=== PATIENT | male | born 1975 | race Caucasian/White ===

== ENCOUNTER 2020-05-05 10:50 | Outpatient (CLI) | payer BC, SELFPAY ==
[2020-05-05 11:29] LABS: Basophils Percent Auto 0.7 % (0.2-1.2); Eosinophils Absolute Auto 0.1 K/mm3 (0-0.3); Eosinophils Percent Auto 1.9 % (0-4.4); Hematocrit 46.7 % (42.0-52.0); Hemoglobin 15.7 g/dL (14.0-18.0); Immature Granulocyte Absolute 0.01 K/mm3 (0.00-0.031); Immature Granulocyte Percent A 0.2 % (0-0.5); Lymphocytes Absolute Auto 1.23 K/mm3 (0.9-3.2); Lymphocytes Percent Auto 21.4 % (18.3-44.2); Mean Corpuscular HGB Conc 33.6 g/dl (32-36); Mean Corpuscular Volume 92.3 fl (80-100); Mean Platelet Volume 9.9 fl (7.4-10.4); Monocytes Absolute Auto 0.7 K/mm3 (0.1-0.6); Monocytes Percent Auto 12.2 % (2.6-8.5); Neutrophils Absolute Auto 3.7 K/mm3 (1.3-6.7); Neutrophils Percent Auto 63.6 % (45.5-73.1); Platelet Count Result 198 k/mm3 (150-375); Red Blood Count 5.06 M/mm3 (4.6-6.20); Red Cell Distribution Width 12.4 % (11.5-14.5); White Blood Count 5.8 K/mm3 (4.5-10.0)
[2020-05-05 12:40] LABS: Alanine Aminotransferase 56 U/L (4-50); Albumin Level 4.5 g/dL (3.5-5.1); Alkaline Phosphatase 50 U/L (38-126); Aspartate Amino Transferase 29 U/L (17-59); Bilirubin,Total 0.3 mg/dL (0.2-1.3); Blood Urea Nitrogen 18 mg/dL (9-20); Calcium 9.1 mg/dL (8.4-10.2); Carbon Dioxide 28 mmol/L (22-30); Chloride 103 mmol/L (98-107); Estimated Glomerular Filt Rate > 60; Glucose 103 mg/dL (75-110); Potassium 3.9 mmol/L (3.4-5.0); Sodium 139 mmol/L (137-145)
[2020-05-05 13:10] LABS: Prostate Specific Antigen 0.5 ng/mL (< OR = 4.0)
[2020-05-10 12:27] LABS: HCG Tumor Marker <3 mIU/mL (<5)
[2020-05-12 17:31] LABS: Alpha Fetoprotein Tumor Marker 2.2 ng/mL (<6.1)
== END 2020-05-05 10:51 | disposition home or self-care (01) ==
PROVIDERS: PCP Internal Medicine; Visit Provider Internal Medicine Hematology & Oncology
DX: C62.92 Malignant neoplasm of left testis, unspecified whether descended or undescended (principal); Z12.5 Encounter for screening for malignant neoplasm of prostate
CPT/HCPCS: 36415; 80053; 82105; 84153; 84702; 85025; G0103

== ENCOUNTER 2020-07-21 07:25 | Outpatient (CLI) | payer BC, SELFPAY ==
--- NOTE | ~2020-07-21 | CT_ITS ---
EXAMINATION: CT abdomen pelvis wo/w con EXAM DATE: 07/21/2020 08:16 INDICATION: Gross hematuria. Testicular cancer. TECHNIQUE: Spiral CT of the abdomen and pelvis was performed without contrast. The patient was then injected with small bolus intravenous Omnipaque 350, followed by delay of approximately 10 minutes to allow collecting system to opacify. A post contrast scan abdomen and pelvis was performed during inj ection of remaining contrast. A total of 130 cc intravenous contrast was administered. The dose-walker th product (DLP) for this examination was 1950.66 mGy-cm. The exposure was tailored according to pat ient size (auto mA exposure control), and iterative reconstruction (ASIR) was used as additional dose reduction technique. Comparison is made to prior examination from 11/05/2019. FINDINGS: There is punctate left superior calyceal stone. There is a 2.0 cm left renal cyst with milk of calcium. Several smaller renal cysts bilaterally. The kidneys enhance symmetrically. There are no suspicious renal lesions. The calyces and opacified portions of ureters are unremarkable, without filling defects or focal suspicious strictures. The bladder is unremarkable. The prostate is unrem arkable. The liver, spleen, adrenal glands and pancreas are unremarkable. Gallbladder is unremarkable. No bi liary obstruction. There is no retroperitoneal or pelvic lymphadenopathy. The appendix is normal. The stomach and small bowel are unremarkable. There is expected amount of c olonic stool. No free intraperitoneal gas. The heart is normal in size. There are no pericardial or pleural effusions. The lung bases are unremarkable. Left ischial sclerotic focus unchanged, con sistent with bone island. IMPRESSION: 1. Punctate left nephrolithiasis. 2. No evidence of metastatic disease. Reviewed, dictated and finalized at location B.
--- NOTE | ~2020-07-21 | XR_ITS ---
EXAMINATION: XR abdomen/kub 1V EXAM DATE: 07/21/2020 07:58 INDICATION: Gross hematuria. TECHNIQUE: Frontal projection of the upper abdomen, frontal projection lower abdomen/pelvis for inter pretation. There is no prior study for comparison. FINDINGS: There is expected amount of colonic stool and gas. No small bowel dilation, nonobstructiv e bowel gas pattern. There are no suspicious calcifications identified. There is no organomegaly suspected. Approximately 1 cm left ischial sclerotic focus likely bone island. IMPRESSION: Can't identify punctate left nephrolithiasis. Sclerotic left ischial focus probably bone island. Reviewed, dictated and finalized at location B. IMPRESSION: Can't identify punctate left nephrolithiasis. Sclerotic left ischi al focus probably bone island.
== END 2020-07-21 07:26 | disposition home or self-care (01) ==
LOC: ANHIMG 07:28
PROVIDERS: PCP Internal Medicine; Visit Provider Nurse Practitioner Adult Health
DX: R31.0 Gross hematuria (principal); N20.0 Calculus of kidney
CPT/HCPCS: 74018; 74178; Q9967

== ENCOUNTER 2021-01-26 08:48 | Outpatient (CLI) | payer BC, SELFPAY ==
[2021-01-26 09:07] LABS: Basophils Percent Auto 0.6 % (0.2-1.2); Eosinophils Absolute Auto 0.3 K/mm3 (0-0.3); Eosinophils Percent Auto 4.5 % (0-4.4); Hematocrit 46.8 % (42.0-52.0); Hemoglobin 15.8 g/dL (14.0-18.0); Immature Granulocyte Absolute 0.01 K/mm3 (0.00-0.031); Immature Granulocyte Percent A 0.2 % (0-0.5); Lymphocytes Absolute Auto 1.83 K/mm3 (0.9-3.2); Lymphocytes Percent Auto 29.6 % (18.3-44.2); Mean Corpuscular HGB Conc 33.8 g/dl (32-36); Mean Corpuscular Hemoglobin 30.6 pg (26-34); Mean Corpuscular Volume 90.5 fl (80-100); Mean Platelet Volume 10.1 fl (7.4-10.4); Monocytes Absolute Auto 0.5 K/mm3 (0.1-0.6); Monocytes Percent Auto 7.6 % (2.6-8.5); Neutrophils Absolute Auto 3.6 K/mm3 (1.3-6.7); Neutrophils Percent Auto 57.5 % (45.5-73.1); Platelet Count Result 248 k/mm3 (150-375); Red Blood Count 5.17 M/mm3 (4.6-6.20); Red Cell Distribution Width 12.7 % (11.5-14.5); White Blood Count 6.2 K/mm3 (4.5-10.0)
[2021-01-26 10:07] LABS: Alanine Aminotransferase 44 U/L (4-50); Albumin Level 4.9 g/dL (3.5-5.1); Alkaline Phosphatase 44 U/L (38-126); Anion Gap 9 mmol/L (8-16); Aspartate Amino Transferase 26 U/L (17-59); Bilirubin,Total 0.5 mg/dL (0.2-1.3); Blood Urea Nitrogen 19 mg/dL (9-20); Carbon Dioxide 29 mmol/L (22-30); Chloride 102 mmol/L (98-107); Estimated Glomerular Filt Rate > 60; Glucose 116 mg/dL (75-110); Sodium 140 mmol/L (137-145)
[2021-01-30 14:12] LABS: Alpha Fetoprotein Tumor Marker 2.4 ng/mL (<6.1)
[2021-01-31 18:50] LABS: HCG Tumor Marker <3 mIU/mL (<5)
== END 2021-01-26 08:49 | disposition home or self-care (01) ==
LOC: ANHLAB 08:49
PROVIDERS: PCP Internal Medicine; Visit Provider Internal Medicine Hematology & Oncology
DX: C62.92 Malignant neoplasm of left testis, unspecified whether descended or undescended (principal)
CPT/HCPCS: 36415; 80053; 82105; 84702; 85025

== ENCOUNTER 2022-02-15 08:59 | Outpatient (CLI) | payer BC, SELFPAY ==
[2022-02-15 09:24] LABS: Basophils Absolute Auto 0.1 K/mm3 (0.0-0.1); Basophils Percent Auto 1.4 % (0.2-1.2); Eosinophils Absolute Auto 0.3 K/mm3 (0-0.3); Eosinophils Percent Auto 5.2 % (0-4.4); Hematocrit 47.3 % (42.0-52.0); Hemoglobin 15.4 g/dL (14.0-18.0); Immature Granulocyte Absolute 0.02 K/mm3 (0.00-0.031); Immature Granulocyte Percent A 0.4 % (0-0.5); Lymphocytes Absolute Auto 1.64 K/mm3 (0.9-3.2); Lymphocytes Percent Auto 31.7 % (18.3-44.2); Mean Corpuscular HGB Conc 32.6 g/dl (32-36); Mean Corpuscular Hemoglobin 31.6 pg (26-34); Mean Corpuscular Volume 96.9 fl (80-100); Monocytes Absolute Auto 0.5 K/mm3 (0.1-0.6); Monocytes Percent Auto 8.9 % (2.6-8.5); Neutrophils Absolute Auto 2.7 K/mm3 (1.3-6.7); Neutrophils Percent Auto 52.4 % (45.5-73.1); Platelet Count Result 231 k/mm3 (150-375); Red Blood Count 4.88 M/mm3 (4.6-6.20); Red Cell Distribution Width 12.6 % (11.5-14.5); White Blood Count 5.2 K/mm3 (4.5-10.0)
[2022-02-15 10:51] LABS: Alanine Aminotransferase 61 U/L (4-50); Albumin Level 4.9 g/dL (3.5-5.1); Alkaline Phosphatase 45 U/L (38-126); Anion Gap 10 mmol/L (8-16); Aspartate Amino Transferase 34 U/L (17-59); Bilirubin,Total 0.4 mg/dL (0.2-1.3); Blood Urea Nitrogen 18 mg/dL (9-20); Carbon Dioxide 27 mmol/L (22-30); Chloride 103 mmol/L (98-107); Estimated Glomerular Filt Rate > 60; Glucose 100 mg/dL (65-110); Potassium 3.8 mmol/L (3.4-5.0); Sodium 140 mmol/L (137-145)
[2022-02-15 11:21] LABS: Prostate Specific Antigen 0.6 ng/mL (< OR = 4.0)
[2022-02-18 08:19] LABS: HCG Tumor Marker <3 mIU/mL (<5)
[2022-02-20 22:47] LABS: Alpha Fetoprotein Tumor Marker 2.9 ng/mL (<6.1)
== END 2022-02-15 09:00 | disposition home or self-care (01) ==
LOC: ANHLAB 09:01
PROVIDERS: PCP Internal Medicine; Visit Provider Internal Medicine Hematology & Oncology
DX: C62.92 Malignant neoplasm of left testis, unspecified whether descended or undescended (principal); Z12.5 Encounter for screening for malignant neoplasm of prostate
CPT/HCPCS: 36415; 80053; 82105; 84153; 84702; 85025; G0103

== ENCOUNTER 2022-05-25 01:33 | Day surgery (SDC) | payer BC, SELFPAY ==
[2022-05-10 11:44] VITALS: BMI 29.3
--- NOTE | 2022-05-24 11:45 | SUR.PREOP ---
1145 spoke with patient, patient is taking Sutab for his prep.
[2022-05-25 07:39] VITALS: BP 148/88; PULSE 86; RESP 17; TEMP 36.4; O2SAT 98
--- NOTE | 2022-05-25 07:40 | P.PNAN_ITS ---
Anes - Initial Pre Proc Eval Procedure: Operation Date: 05/25/22 08:30 Proposed Procedures p Screening Colonoscopy - Samuel Casas MD Date/Time: 05/25/22 07:40 Surgeon: Samuel Casas MD Pre Op Diagnosis: neoplasm screening Patient Data Age: 46 Gender: M Height: 1.8 m Weight: 95.5 kg Allergies Allergy/AdvReac Type Severity Reaction Status Date / Time No Known Allergies Allergy Unknown NONE Verified 05/25/22 07:37 Home Medications Medication Instructions Recorded Confirmed Type fexofenadine 180 mg tablet 180 mg PO DAILY 05/10/22 05/10/22 History fluticasone propionate 50 1 spray intranasal DAILY 05/10/22 05/10/22 History mcg/actuation nasal spray,suspension montelukast 10 mg tablet 10 mg PO DAILY 05/10/22 05/10/22 History multivitamin with minerals-folic 1 tablet PO DAILY 05/10/22 05/10/22 History acid 0.4 mg tablet Patient hx anesthesia problems: none Family hx anesthesia problems: none Results Review: All pre-operative results and documents have been reviewed as part of the pre- operative evaluation. [facility] Past Medical History Medical History (Updated 05/25/22 @ 07:40 by Darryn Hilario MD) Overweight (BMI 25.0-29.9) Family History Family History (Updated 10/30/18 @ 17:25 by DOCTOR UNKNOWN) Father Family history of hypercholesterolemia Hypertension Malignant neoplasm of prostate Social History Social History Smoking status: Former smoker Tobacco type: cigarettes Second hand tobacco smoke exposure: No Smoking end date: 10/28/13 Alcohol intake: current Drinks per week: 2 Substance use type: does not use Living arrangements: with family Spiritual care concerns: No Anes - Eval Final PreProcedure Day of Procedure 05/25/22 07:40 Patient weight: overweight Heart: regular rate and rhythm Lungs: clear to auscultation and normal air movement Airway: Mallampati scale class II Neurological: alert and oriented Last oral intake: >/= 8 hours ASA classification: II Emergent: no Anesthetic plan: proceed Anesthesia type and monitoring: general GIVS Results Review: All pre-operative results and documents have been reviewed as part of the pre- operative evaluation. Informed Consent: The patient's anesthetic plan and its attendant risks and benefits were discu ssed with the patient/family/POA. Questions were solicited and answers provided to the satisfaction of the patient/family/POA.
[2022-05-25] MEDS: LACTATED RINGERS 1,000 ML 150 ML IV CONT (07:46)
--- NOTE | 2022-05-25 08:31 | P.HP_ITS ---
H&P: HPI History of Present Illness Date/Time: 05/25/22 08:31 Chief Complaint: Neoplasia screening. Narrative: This is a 46-year-old white male patient who presents for screening colonoscopy. Patient's current weight appetite bowel movements are normal. Patient denies abdominal pain. He has had no bleeding. Family history is significant his grandmother and aunt have had colon cancer a brother had colon polyps. Patient presents today for neoplasia screening. Review of Systems Review of Systems: Review of systems noncontributory. [facility] Past Medical History Medical History (Updated 05/25/22 @ 08:33 by Samuel Casas MD) Overweight (BMI 25.0-29.9) Family History Family History (Updated 10/30/18 @ 17:25 by DOCTOR UNKNOWN) Father Family history of hypercholesterolemia Hypertension Malignant neoplasm of prostate Social History Social History Smoking status: Former smoker Tobacco type: cigarettes Second hand tobacco smoke exposure: No Smoking end date: 10/28/13 Alcohol intake: current Drinks per week: 2 Substance use type: does not use Living arrangements: with family Spiritual care concerns: No Meds Home Medications and Allergies Home Medications Medication Instructions Recorded Confirmed Type fexofenadine 180 mg tablet 180 mg PO DAILY 05/10/22 05/10/22 History fluticasone propionate 50 1 spray intranasal DAILY 05/10/22 05/10/22 History mcg/actuation nasal spray,suspension montelukast 10 mg tablet 10 mg PO DAILY 05/10/22 05/10/22 History multivitamin with minerals-folic 1 tablet PO DAILY 05/10/22 05/10/22 History acid 0.4 mg tablet Allergies Allergy/AdvReac Type Severity Reaction Status Date / Time No Known Allergies Allergy Unknown NONE Verified 05/25/22 07:37 Vital Signs Vital Signs - 24 hr 05/25/22 07:39 Temperature 97.5 F L Pulse Rate 86 Respiratory Rate 17 Blood Pressure 148/88 H Pulse Oximetry 98 Oxygen Delivery Room Air Exam Narrative: Physical exam reveals patient to be alert. Vital signs stable. HEENT exam is unremarkable. Patient is anicteric. Lungs are clear to auscultation and percussion. Heart is without murmur or extra sounds. Abdominal exam bowel sounds are present soft nontender with no organomegaly. Digital external rectal exam is normal. Assessment and Plan Assessment and plan (1) Encounter for screening colonoscopy: Code(s): Z12.11 - Encounter for screening for malignant neoplasm of colon Status: Acute Assessment and Plan: Patient presents for screening colonoscopy. His family history is significant for grandparents and aunt that had colon cancer in her brother with colon polyps. Further recommendations will be given after endoscopy but screening at 5-7 year intervals appears appropriate.
[2022-05-25 08:59] VITALS: BP 116/78; PULSE 92; RESP 26; O2SAT 99
[2022-05-25 09:09] VITALS: BP 112/73; PULSE 73; RESP 18; O2SAT 100
[2022-05-25 09:19] VITALS: BP 134/94; PULSE 89; RESP 20; O2SAT 100
== END 2022-05-25 09:27 | disposition home or self-care (01) ==
PROVIDERS: PCP Internal Medicine; Visit Provider Internal Medicine Gastroenterology
PROC: 0DJD8ZZ Inspection of Lower Intestinal Tract, Via Natural or Artificial Opening Endoscopic (ICD-10-PCS; CPT 45378; principal; 2022-05-25 08:30)
DX: Z12.11 Encounter for screening for malignant neoplasm of colon (principal); Z87.891 Personal history of nicotine dependence
CPT/HCPCS: 45378; J2704; J7120

== ENCOUNTER 2023-02-21 08:40 | Outpatient (CLI) | payer BC, SELFPAY ==
[2023-02-21 08:55] LABS: Basophils Percent Auto 0.7 % (0.2-1.2); Eosinophils Absolute Auto 0.2 K/mm3 (0-0.3); Eosinophils Percent Auto 4.2 % (0-4.4); Hematocrit 45.2 % (42.0-52.0); Hemoglobin 15.3 g/dL (14.0-18.0); Immature Granulocyte Absolute 0.01 K/mm3 (0.00-0.031); Immature Granulocyte Percent A 0.2 % (0-0.5); Lymphocytes Absolute Auto 1.92 K/mm3 (0.9-3.2); Lymphocytes Percent Auto 34.7 % (18.3-44.2); Mean Corpuscular HGB Conc 33.8 g/dl (32-36); Mean Corpuscular Hemoglobin 31.2 pg (26-34); Mean Corpuscular Volume 92.1 fl (80-100); Monocytes Absolute Auto 0.5 K/mm3 (0.1-0.6); Monocytes Percent Auto 9.2 % (2.6-8.5); Neutrophils Absolute Auto 2.8 K/mm3 (1.3-6.7); Platelet Count Result 254 k/mm3 (150-375); Red Blood Count 4.91 M/mm3 (4.6-6.20); Red Cell Distribution Width 12.6 % (11.5-14.5); White Blood Count 5.5 K/mm3 (4.5-10.0)
[2023-02-21 10:23] LABS: Alanine Aminotransferase 59 U/L (6-50); Albumin Level 4.7 g/dL (3.5-5.1); Alkaline Phosphatase 45 U/L (38-126); Anion Gap 8 mmol/L (8-16); Aspartate Amino Transferase 30 U/L (17-59); Bilirubin,Total 0.6 mg/dL (0.2-1.3); Blood Urea Nitrogen 17 mg/dL (9-20); Calcium 8.9 mg/dL (8.4-10.2); Carbon Dioxide 30 mmol/L (22-30); Chloride 99 mmol/L (98-107); Estimated Glomerular Filt Rate > 60; Glucose 98 mg/dL (65-110); Potassium 3.9 mmol/L (3.4-5.0); Sodium 137 mmol/L (137-145)
[2023-02-27 03:49] LABS: HCG Tumor Marker <5 mIU/mL (<5)
[2023-02-28 15:43] LABS: Alpha Fetoprotein Tumor Marker 2.5 ng/mL (<6.1)
== END 2023-02-21 08:41 | disposition home or self-care (01) ==
LOC: ANHLAB 08:42
PROVIDERS: PCP Physician Assistant Medical; Visit Provider Internal Medicine Hematology & Oncology
DX: C62.92 Malignant neoplasm of left testis, unspecified whether descended or undescended (principal)
CPT/HCPCS: 36415; 80053; 82105; 84702; 85025

== ENCOUNTER 2023-03-07 09:42 | Outpatient (CLI) | payer BC, SELFPAY ==
--- NOTE | ~2023-03-07 | CT_ITS ---
CT of the Abdomen and Pelvis: Indication: Testicular cancer Technique: 2.5 mm axial scans were obtained through the abdomen and pelvis following intravenous adm inistration of 100 cc of Omnipaque 350. Dose reduction technique was used on this scan by utilizing a utomated exposure control and iterative reconstruction technique. The dose-length product (DLP) was 7 57.13 mGy-cm. COMPARISON: 07/21/2020 Findings: Scans through the lung bases are unremarkable. The liver, spleen, pancreas, gallbladder, adrenals and kidneys are within normal limits. No evidence of aortic aneurysm. There is minimal haziness in the central mesentery with small spotty lymph nodes . No bowel obstruction or bowel wall thickening. There is no evidence to suggest acute appendicitis. Images through the pelvis were performed. Urinary bladder unremarkable. No pelvic mass seen. No ascit es. Impression: No evidence for active malignancy or metastatic disease. Findings suggestive of mild mesenteric panniculitis. Reviewed, dictated and finalized at [facility]. Impression: No evidence for active malignancy or metastatic disease. Findings suggestive of mild mesenteric panniculitis.
== END 2023-03-07 09:43 | disposition home or self-care (01) ==
PROVIDERS: PCP Physician Assistant Medical; Visit Provider Internal Medicine Hematology & Oncology
DX: C62.92 Malignant neoplasm of left testis, unspecified whether descended or undescended (principal)
CPT/HCPCS: 74177; Q9967

== ENCOUNTER 2024-02-20 13:58 | Outpatient (CLI) | payer BC, SELFPAY ==
[2024-02-20 14:12] LABS: Basophils Absolute Auto 0.1 K/mm3 (0.0-0.1); Basophils Percent Auto 0.9 % (0.2-1.2); Eosinophils Absolute Auto 0.2 K/mm3 (0-0.3); Eosinophils Percent Auto 3.4 % (0-4.4); Hematocrit 46.6 % (42.0-52.0); Hemoglobin 15.5 g/dL (14.0-18.0); Immature Granulocyte Absolute 0.03 K/mm3 (0.00-0.031); Immature Granulocyte Percent A 0.4 % (0-0.5); Lymphocytes Absolute Auto 1.91 K/mm3 (0.9-3.2); Lymphocytes Percent Auto 28.1 % (18.3-44.2); Mean Corpuscular HGB Conc 33.3 g/dl (32-36); Mean Corpuscular Hemoglobin 31.2 pg (26-34); Mean Corpuscular Volume 93.8 fl (80-100); Mean Platelet Volume 10.2 fl (7.4-10.4); Monocytes Absolute Auto 0.5 K/mm3 (0.1-0.6); Monocytes Percent Auto 7.8 % (2.6-8.5); Neutrophils Percent Auto 59.4 % (45.5-73.1); Platelet Count Result 253 k/mm3 (150-375); Red Blood Count 4.97 M/mm3 (4.6-6.20); Red Cell Distribution Width 12.6 % (11.5-14.5); White Blood Count 6.8 K/mm3 (4.5-10.0)
[2024-02-20 21:12] LABS: Alanine Aminotransferase 47 U/L (6-50); Albumin Level 4.9 g/dL (3.5-5.1); Alkaline Phosphatase 45 U/L (38-126); Anion Gap 8 mmol/L (4-12); Aspartate Amino Transferase 27 U/L (17-59); Bilirubin,Total 0.5 mg/dL (0.2-1.3); Blood Urea Nitrogen 24 mg/dL (9-20); Calcium 9.7 mg/dL (8.4-10.2); Carbon Dioxide 28 mmol/L (22-30); Chloride 104 mmol/L (98-107); Estimated Glomerular Filt Rate > 60; Glucose 117 mg/dL (65-110); Potassium 4.4 mmol/L (3.4-5.0); Sodium 140 mmol/L (137-145)
== END 2024-02-20 13:59 | disposition home or self-care (01) ==
LOC: ANHLAB 13:59
PROVIDERS: PCP Physician Assistant Medical; Visit Provider Internal Medicine Hematology & Oncology
DX: C62.92 Malignant neoplasm of left testis, unspecified whether descended or undescended (principal)
CPT/HCPCS: 36415; 80053; 85025

== ENCOUNTER 2025-02-18 09:37 | Outpatient (CLI) | payer BC, SELFPAY ==
[2025-02-18 09:53] LABS: Basophils Percent Auto 0.7 % (0.2-1.2); Eosinophils Absolute Auto 0.3 K/mm3 (0-0.3); Hematocrit 44.7 % (42.0-52.0); Hemoglobin 15.4 g/dL (14.0-18.0); Immature Granulocyte Absolute 0.03 K/mm3 (0.00-0.031); Immature Granulocyte Percent A 0.6 % (0-0.5); Lymphocytes Absolute Auto 1.79 K/mm3 (0.9-3.2); Lymphocytes Percent Auto 33.3 % (18.3-44.2); Mean Corpuscular HGB Conc 34.5 g/dl (32-36); Mean Corpuscular Hemoglobin 31.7 pg (26-34); Mean Platelet Volume 9.9 fl (7.4-10.4); Monocytes Absolute Auto 0.5 K/mm3 (0.1-0.6); Monocytes Percent Auto 8.8 % (2.6-8.5); Neutrophils Absolute Auto 2.8 K/mm3 (1.3-6.7); Neutrophils Percent Auto 51.6 % (45.5-73.1); Platelet Count Result 235 k/mm3 (150-375); Red Blood Count 4.86 M/mm3 (4.6-6.20); Red Cell Distribution Width 12.4 % (11.5-14.5); White Blood Count 5.4 K/mm3 (4.5-10.0)
[2025-02-18 10:16] LABS: Alanine Aminotransferase 51 U/L (6-50); Albumin Level 4.6 g/dL (3.5-5.1); Alkaline Phosphatase 45 U/L (38-126); Anion Gap 8 mmol/L (4-12); Aspartate Amino Transferase 35 U/L (17-59); Bilirubin,Total 0.4 mg/dL (0.2-1.3); Blood Urea Nitrogen 17 mg/dL (9-20); Calcium 9.2 mg/dL (8.4-10.2); Carbon Dioxide 30 mmol/L (22-30); Chloride 101 mmol/L (98-107); Estimated Glomerular Filt Rate > 60; Glucose 110 mg/dL (65-110); Lactate Dehydrogenase 167 U/L (120-246); Potassium 3.9 mmol/L (3.4-5.0); Sodium 139 mmol/L (137-145)
--- OUTSIDE RECORDS SUMMARY | 2025-02-18 10:36 | XMS_ITS | Clinical Summary ---
Author Organization [facility] Address [address] [place] [address] Care Team Providers Care Chaplain Resident Name Role Phone Darryl Johnson MD Primary Care Provider [phone] Allergies No known active allergies Medications montelukast (SINGULAIR) 10 mg tablet Take 10 mg by mouth daily. 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 Encounters Date Type Department Care Team Description 02/09/2025 External Device Data [facility] ABSTRACTION Provider, Abstract 01/06/2025 External Device Data [facility] ABSTRACTION Provider, Abstract 01/05/2025 External Device Data [facility] ABSTRACTION Provider, Abstract 01/02/2025 External Device Data [facility] ABSTRACTION Provider, Abstract 01/01/2025 External Device Data [facility] ABSTRACTION Provider, Abstract 12/22/2024 External Device Data [facility] ABSTRACTION Provider, Abstract from Last 3 Months Family History Medical History Relation Name Comments Healthy Brother 1 Healthy Brother 2 Cancer Father Healthy Mother Relation Name Status Comments Brother 1 Alive Brother 2 Alive Father Mother Alive Social History Tobacco Use Types Packs/Day Years Used Date Smoking Tobacco: Former Cigarettes 0.3 5 1 11/02/2009 - 09/02/2015 Tobacco Cessation:Counseling Given: Not Answered Comments:social smoker off and on for approx 10 yrs Alcohol Use Standard Drinks/Week Comments Yes 0 (1 standard drink = 0.6 oz pur e alcohol) occasional Sex and Gender Information Value Date Recorded Sex Assigned at Not on file Legal Sex Male 12:01 PM CDT Gender Identity Not on file Sexual Orientation Not on file Last Filed Vital Signs Vital Sign Reading Time Taken Comments Blood Pressure 137/85 02/27/2024 10:05 AM CDT Pulse 69 02/27/2024 10:05 AM CDT Temperature 35.9 C (96.6 F) 02/27/2024 10:05 AM CDT Respiratory Rate 14 02/27/2024 10:05 AM CDT Oxygen Saturation 98% 02/27/2024 10:05 AM CDT Inhaled Oxygen Concentration - - Weight 97.5 kg (215 lb) 02/27/2024 10:05 AM CDT Height 182.9 cm (6') 03/01/2022 2:32 PM CDT Body Mass Index 29.16 03/01/2022 2:32 PM CDT Plan of Treatment Upcoming Encounters Date Type Department Care Team (Late st Contact Info) Description 03/25/2025 2:30 PM CDT Office Visit [facility] [place] [address] [facility] [address] [address] Atif Brewster MD [address] [facility] [address] [place] [address] Health Maintenance Due Date Last Done Comments Pre-Diabetes and Diabetes Screening 1976 DTAP/TDAP/TD VACCINES (1 - Tdap) 1995 HEPATITIS B VACCINES (1 of 3 - 19+ 3-dose series) 08/28 COLORECTAL SCREENING 2021 Colorectal Cancer Screening 2021 FIT-DNA Q 3 years 2021 FIT/FOBT Q 1 year 2021 Flex Sig/CT Colonography Q 5 years 2021 INFLUENZA VACCINE (#1) 2024 Insurance [employer] BLUE PREFERRED [facility] BLUE PREFERRED Care Teams Chaplain Resident Relationship Specialty Start Date End Date Darryl Johnson MD [address] [place] [phone] PCP - General Family Practice 02/27/24
--- OUTSIDE RECORDS SUMMARY | 2025-02-18 10:36 | XMS_ITS | Clinical Summary ---
Author Organization [facility] Address [address] [place] [id number] Care Team Providers Care Sound Assistant Name Role Phone Naila John Primary Care Provider [phone] Encounters Date Type Department Care Team Description 01/07/2025 9:50 AM CDT Laboratory Only [facility] [address] [place] [address] Jemal Molina MD 01/07/2025 Travel from Last 3 Months Social History Tobacco Use Types Packs/Day Years Used Date Smoking Tobacco: Never Assessed Sex and Gender Information Value Date Recorded Sex Assigned at Not on file Legal Sex Male 7:42 PM CDT Gender Identity Not on file Sexual Orientation Not on file Plan of Treatment Health Maintenance Due Date Last Done Comments Colorectal Cancer Screening Colonoscopy (10 Years) 1976 Annual Physical 1979 Hepatitis C 1994 DTaP, Tdap and Td Vaccines ( 1 - Tdap) 1995 Hepatitis B Vaccines (1 of 3 - 19+ 3-dose series) 1995 COVID-19 Vaccine ( - 2023-2 5 season) 2024 06/08/2021, 05/18/2021 Meningococcal B Vaccine Aged Out No l onger eligible based on patient's age to complete this topic Meningococcal Vaccine Aged Out No irineo gabrielle eligible based on patient's age to complete this topic Pneumococcal Vaccine: Pediatrics (0 to 5 Years) and At-Risk Patients (6 to 49 Years) Aged Out No longer eligible b ased on patient's age to complete this topic RSV Immunizations Under 20 Months Aged Out No longer eligible b ased on patient's age to complete this topic Procedures Procedure Name Priority Date/Time Associated Diagnosis Comments VITAMIN D, 25 OH Routine 01/07/2025 9:52 AM CDT from Last 3 Months Results * VITAMIN D, 25 OH (01/07/2025 9:52 AM CDT) VITAMIN D 25 HYDROXY S/P/B 32 30 - 100 NG/ML 01/07/2025 10:46 AM CDT [facility] Comment: INTERPRETATION DEFICIENT <20 INSUFFICIENT 20-29 SUFFICIENT 30-100 01/07/2025 9:52 AM CDT us Jemal Molina MD LABORATORY Final Result [facility] [id number] [place] [address], from Last 3 Months Insurance [facility] Care Teams Sound Assistant Relationship Specialty Start Date End Date Naila John PA [address] [place] [phone] PCP - General PHYSICIAN OVER SHORT AND DAMAGE CLERK 10/08/24
[2025-02-22 07:48] LABS: Alpha Fetoprotein Tumor Marker 2.4 ng/mL (<6.1)
== END 2025-02-18 09:38 | disposition home or self-care (01) ==
LOC: ANHLAB 09:40
PROVIDERS: PCP Physician Assistant Medical; Visit Provider Internal Medicine Hematology & Oncology
DX: C62.92 Malignant neoplasm of left testis, unspecified whether descended or undescended (principal)
CPT/HCPCS: 36415; 80053; 82105; 83615; 85025